=== PATIENT | female | born 1935 | race Caucasian/White ===

== ENCOUNTER → 2018-06-05 10:19 | Outpatient (CLI) | payer MEDICARE, OTHER ==
--- NOTE | 2018-06-06 14:58 | EC ---
PATIENT:KATIA FATIMA DATE OF SERVICE: 06/05/18 SEX: F MEDICAL RECORD: [id number] DATE OF : 39 LOCATION:[facility] AGE OF PATIENT: 82 ADMISSION DATE: 06/05/18 REFERRING PHYSICIAN: INTERPRETING PHYSICIAN: REGULO RBOCK MD ECHOCARDIOGRAM REPORT ECHO CHARGES 4 ECHO COMPLETE Date: 06/05/18 CLINICAL DIAGNOSIS: MR H/O CAD/HTN ECHOCARDIOGRAPHIC MEASUREMENTS (adult normal given) AC root (d.<3.7cm) 2.8 cm LV Septum d (<1.2 cm> 1.1 cm Valve Excursion 1.7 cm LV Septum (systole) 1.7 cm Left Atria (s.<4.0cm> 3.5 cm LVPW d(<1.2cm) 1.0 cm RV (d.<2.3cm) 2.8 cm LVPW (sytole) 1.7 cm LV diastole(<5.6CM) 5.6 cm MV E-F(>70mm/sec) cm LV systole 3.4 cm LVOT Diameter 1.6 cm MV exc.(>10mm) cm Est.ejection fraction (50-75%) % DOPPLER: LVIT cm/sec A 90.0 cm/sec E 57.0 cm/sec LA cm/sec RVSP 50.4 mmHg LVOT 85.0 cm/sec AOP1/2T m/s Asc. Ao 114 cm/sec RVOT 51.0 cm/sec RA cm/sec PA 70.0 cm/sec AV Gradient Peak 5.2 mmHg AV Mean 2.6 mmHg AV Area 1.6 cm MV Gradient Peak 4.5 mmHg MV Mean 1.4 mmHg MV Area cm COMMENTS: OP - HC Sr. Manager: 1 CARLI JCAK Process Worker: 1 Dr. Brock TAPE# PACS Pericardial Effusion N DATE OF SERVICE: ECHOCARDIOGRAM FINDINGS: 1. Left ventricular chamber size is within normal limits. Left ventricular systolic function is normal. Overall ejection fraction estimated at 55%. 2. Left atrium, right atrium, and right ventricle chamber sizes are within normal limits. 3. Valvular structures have normal structure and motion. ECHOCARDIOGRAM REPORT [id number] KATIA FATIMA 4. Doppler interrogation reveals moderate mitral regurgitation, [id number] tricuspid regurgitation, no other valvular insufficiency or stenosis. Pulmonary systolic pressure is elevated estimated at 50 mmHg. 5. No evidence of pericardial effusion or left ventricular thrombus. TRANSINT:[id number] Voice Confirmation ID: [id number] DOCUMENT ID: [id number] REGULO BROCK MD at 1458 CC: [id number] DICTATION DATE: 06/06/18910 QUALITY IMPROVEMENT MANAGER: 06/06/18 0950 DEP CLI 06/05/18 [place] [id number] [place] [id number]
== END | disposition home or self-care (01) ==
LOC: D.HCCARDIO 10:19
PROVIDERS: ATTEND Internal Medicine Interventional Cardiology
DX: I34.0 Nonrheumatic mitral (valve) insufficiency (principal)